=== PATIENT | male | born 1935 | race Caucasian/White ===

== ENCOUNTER 2016-08-20 12:36 | Emergency (ER) | payer OTHER, MEDICAID ==
[2016-08-20 14:09] VITALS: BP 159/74
== END 2016-08-20 14:09 | disposition home or self-care (01) ==
LOC: ED 12:36
DX: L60.0 Ingrowing nail (principal); E11.9 Type 2 diabetes mellitus without complications; I10 Essential (primary) hypertension; Z79.4 Long term (current) use of insulin; Z88.8 Allergy status to other drugs, medicaments and biological substances

== ENCOUNTER 2016-12-02 15:37 | Emergency (ER) | payer OTHER ==
[2016-12-02 15:55] VITALS: BP 148/68
== END 2016-12-02 17:55 | disposition home or self-care (01) ==
LOC: ED 15:37
DX: J06.9 Acute upper respiratory infection, unspecified (principal); I10 Essential (primary) hypertension; E11.9 Type 2 diabetes mellitus without complications; Z91.041 Radiographic dye allergy status

== ENCOUNTER 2017-07-15 17:19 | Inpatient (IN) | payer OTHER ==
[~2017-07-15] VITALS: Ht 167.6 cm; Wt 83.7 kg
[2017-07-15 18:37] LABS: PLATELET COUNT 220 x10^3mcL (130-400); RED CELL DISTRIBUTION WIDTH 12.9 % (11.5-14.5)
[2017-07-15 18:42] LABS: microscopic required? YES; urine erythrocyte TRACE (NEGATIVE)
[2017-07-15 18:46] LABS: CALCIUM 8.3 mg/dL (8.5-10.1); CARBON DIOXIDE 26.2 mmol/L (21-32); CHLORIDE SERUM 102 mmol/L (98-107); CREATININE SERUM 1.5 mg/dL (0.7-1.3); GLUCOSE SERUM 146 mg/dL (74-106); POTASSIUM SERUM 3.9 mmol/L (3.5-5.1); SODIUM SERUM 135 mmol/L (136-145)
[2017-07-15 18:51] LABS: ALKALINE PHOSPHATASE 109 U/L (46-116); ALT/SGPT 25 U/L (16-63); AST/SGOT 21 U/L (15-37); BILIRUBIN TOTAL 0.7 mg/dL (0.20-1.00); TOTAL PROTEIN, SERUM 7.5 g/dL (6.4-8.2)
[2017-07-15 18:53] LABS: ALBUMIN 3.2 g/dL (3.4-5.0)
[2017-07-15 19:15] LABS: BAND NEUTROPHIL 1 % (0-10); METAMYELOCTE 1 % (0-2); MONOCYTE 4 % (0-7); SEGMENTED NEUTROPHILS 86 % (37-75)
[2017-07-15 19:17] LABS: PLATELET MORPHOLOGY FEW LARGE PLATELETS; rbc morphology (normal/abnorm) NORMAL (NORMAL)
[2017-07-15 20:31] LABS: PHOSPHOROUS 2.7 mg/dL (2.5-4.9)
[2017-07-15 20:32] LABS: CHOLESTEROL/HDL RATIO 5.6
[2017-07-15 20:38] LABS: FREE T4 0.58 ng/dL (0.76-1.46); T3 TOTAL 0.83 ng/mL
[2017-07-15 20:42] LABS: FREE THYROXINE INDEX 1.3 ug/dL (1.4-4.5); T4(THYROXINE) 3.7 ug/dL (4.7-13.3)
[2017-07-15 20:54] VITALS: BP 118/48
[2017-07-15] MEDS ORDERED: NOR10 PO (21:50)
[2017-07-15] MEDS ORDERED: PRAVASTATIN SOD10 M1 PO (21:50)
[2017-07-15] MEDS ORDERED: VITAMIN D32000 I2 PO (21:50)
[2017-07-15] MEDS ORDERED: MELOXICAM7.5 M1 PO (21:50)
[2017-07-15] MEDS ORDERED: ATENOLOL50 MG PO (21:50)
[2017-07-15] MEDS ORDERED: CALCIUM500 M1 PO (21:51)
[2017-07-15 22:16] LABS: AMPHETAMINE QUAL UR NONE DETECTED (NEG <=1000)
[2017-07-15 22:40] VITALS: BP 118/48
[2017-07-16 05:22] VITALS: BP 137/59
[2017-07-16 06:24] LABS: BASOPHIL % 0.2 % (0-2); PLATELET COUNT 183 x10^3mcL (130-400); RED CELL DISTRIBUTION WIDTH 13.1 % (11.5-14.5)
[2017-07-16 06:41] LABS: CALCIUM 7.5 mg/dL (8.5-10.1); CARBON DIOXIDE 26.4 mmol/L (21-32); CHLORIDE SERUM 110 mmol/L (98-107); CREATININE SERUM 1.5 mg/dL (0.7-1.3); GLUCOSE SERUM 116 mg/dL (74-106); MAGNESIUM 2.1 mg/dL (1.8-2.4); PHOSPHOROUS 3.1 mg/dL (2.5-4.9); POTASSIUM SERUM 4.3 mmol/L (3.5-5.1); SODIUM SERUM 141 mmol/L (136-145)
[2017-07-16 09:44] VITALS: BP 138/55
[2017-07-16 09:45] VITALS: BP 139/58
[2017-07-16] MEDS ORDERED: TRAMADOL HCL50 MG PO (11:36)
[2017-07-16] MEDS ORDERED: COZAAR100 MG PO (11:41)
[2017-07-16] MEDS ORDERED: GABAPENTIN100 M2 PO (11:42)
[2017-07-16] MEDS ORDERED: GEMFIBROZIL600 MG PO (11:44)
[2017-07-16] MEDS ORDERED: NEILMED SINUS R1 PKT NS (11:46)
[2017-07-16] MEDS ORDERED: LYRICA50 M1 PO (11:46)
[2017-07-16] MEDS ORDERED: [UNRECOGNIZED DRUG - OTHER] (11:47)
[2017-07-16] MEDS ORDERED: VERAMYST27.5 MCG/1 (11:47)
[2017-07-16 12:58] VITALS: BP 125/59
[2017-07-16 17:48] VITALS: BP 143/95
[2017-07-16 21:25] VITALS: BP 146/68
[2017-07-17 05:27] VITALS: BP 160/67
[2017-07-17 06:54] LABS: BASOPHIL % 0.5 % (0-2); PLATELET COUNT 177 x10^3mcL (130-400); RED CELL DISTRIBUTION WIDTH 13.5 % (11.5-14.5)
[2017-07-17 07:10] LABS: CALCIUM 7.8 mg/dL (8.5-10.1); CARBON DIOXIDE 25.2 mmol/L (21-32); CHLORIDE SERUM 108 mmol/L (98-107); CREATININE SERUM 1.4 mg/dL (0.7-1.3); GLUCOSE SERUM 118 mg/dL (74-106); MAGNESIUM 2.1 mg/dL (1.8-2.4); PHOSPHOROUS 3.2 mg/dL (2.5-4.9); POTASSIUM SERUM 4.6 mmol/L (3.5-5.1); SODIUM SERUM 138 mmol/L (136-145)
[2017-07-17 08:56] VITALS: BP 155/65
[2017-07-17 13:54] VITALS: Ht 167.6 cm; Wt 83.7 kg
[2017-07-17 13:55] VITALS: BP 154/64
[2017-07-17 18:45] VITALS: BP 152/69
[2017-07-17 20:38] VITALS: BP 153/68
[2017-07-18 05:57] VITALS: BP 156/69
[2017-07-18 06:45] LABS: CALCIUM 8.4 mg/dL (8.5-10.1); CARBON DIOXIDE 25.8 mmol/L (21-32); CHLORIDE SERUM 108 mmol/L (98-107); CREATININE SERUM 1.5 mg/dL (0.7-1.3); GLUCOSE SERUM 123 mg/dL (74-106); POTASSIUM SERUM 4.7 mmol/L (3.5-5.1); SODIUM SERUM 140 mmol/L (136-145)
[2017-07-18 07:46] LABS: BASOPHIL % 0.4 % (0-2); PLATELET COUNT 189 x10^3mcL (130-400); RED CELL DISTRIBUTION WIDTH 13.1 % (11.5-14.5)
[2017-07-18 08:27] VITALS: BP 154/77
[2017-07-18] MEDS ORDERED: MER500I IV (14:31)
[2017-07-18] MEDS ORDERED: BD LACTINEX1.4 MG PO (14:31)
[2017-07-18 14:56] VITALS: BP 154/77
[2017-07-18] MEDS ORDERED: DEXPF IV (17:05)
[2017-07-18] MEDS ORDERED: HUMULIN R100 U/1 M1 SC (17:05)
[2017-07-18] MEDS ORDERED: BG FS (17:05)
== END 2017-07-18 18:23 | DRG 871 ==
LOC: ED 17:19 → MU 19:53 → DU 19:53 → MU 07-17 12:35
PROVIDERS: Emergency Medicine; Family Medicine
DX: A41.9 Sepsis, unspecified organism (principal); N17.0 Acute kidney failure with tubular necrosis; N39.0 Urinary tract infection, site not specified; E44.1 Mild protein-calorie malnutrition; I10 Essential (primary) hypertension; I25.10 Atherosclerotic heart disease of native coronary artery without angina pectoris; E66.9 Obesity, unspecified; Z68.29 Body mass index [BMI] 29.0-29.9, adult; E78.00 Pure hypercholesterolemia, unspecified; Z95.1 Presence of aortocoronary bypass graft; E11.65 Type 2 diabetes mellitus with hyperglycemia; E03.9 Hypothyroidism, unspecified; E78.2 Mixed hyperlipidemia; E86.0 Dehydration; D64.9 Anemia, unspecified
CPT/HCPCS: 82962; 83880; 84439; 87804; 94150; J0456; J0696; J1885; J1956; J2185; J3490; J7030; J7050; J8597; Q0092

== ENCOUNTER 2018-05-08 09:29 | Observation (INO) | payer OTHER ==
[~2018-05-08] VITALS: Ht 160 cm; Wt 78.5 kg
[~2018-05-08 09:29] MED LIST: ATENOLOL50 MG PO; BD LACTINEX1.4 MG PO; BG FS; CALCIUM500 M1 PO; COZAAR100 MG PO; DEXPF IV; GABAPENTIN100 M2 PO; GEMFIBROZIL600 MG PO; HUMULIN R100 U/1 M1 SC; LYRICA50 M1 PO; MELOXICAM7.5 M1 PO; MER500I IV; NEILMED SINUS R1 PKT NS; NOR10 PO; PRAVASTATIN SOD10 M1 PO; TRAMADOL HCL50 MG PO; VERAMYST27.5 MCG/1; VITAMIN D32000 I2 PO; [UNRECOGNIZED DRUG - OTHER]
[2018-05-08 09:50] VITALS: Ht 160 cm; Wt 78.5 kg
--- NOTE | 2018-05-08 10:05 | NUR ---
PT AWAKE AND ALERT. PT C/O COUGH, RUNNY NOSE, AND C/P. NAD. DENIES SOB. RESP E/U. PT ON FULL CM. PT AWAITING MSE IN POSITION OF COMFORT
--- NOTE | 2018-05-08 11:05 | NUR ---
PT TAKEN TO XRAY VIA WHEELCHAIR
[2018-05-08 11:08] LABS: BASOPHIL % 0.4 % (0-2); PLATELET COUNT 208 x10^3mcL (130-400); RED CELL DISTRIBUTION WIDTH 12.9 % (11.5-14.5)
[2018-05-08 11:10] LABS: CALCIUM 8.5 mg/dL (8.5-10.1); CARBON DIOXIDE 25.4 mmol/L (21-32); CHLORIDE SERUM 104 mmol/L (98-107); CREATININE SERUM 1.5 mg/dL (0.7-1.3); GLUCOSE SERUM 196 mg/dL (74-106); POTASSIUM SERUM 4.2 mmol/L (3.5-5.1); SODIUM SERUM 136 mmol/L (136-145)
--- NOTE | 2018-05-08 11:16 | NUR ---
PT AMBULATORY TO RESTROOM WITH STEADY GAIT
[2018-05-08 11:21] LABS: ALKALINE PHOSPHATASE 95 U/L (46-116); ALT/SGPT 16 U/L (16-63); AMYLASE 66 U/L (25-115); AST/SGOT 16 U/L (15-37); BILIRUBIN TOTAL 0.76 mg/dL (0.20-1.00); CHOLESTEROL 150 mg/dL (<200); HDL CHOLESTEROL 43 mg/dL (40-60); LIPASE 156 IU/L (73-393); TOTAL PROTEIN, SERUM 7.3 g/dL (6.4-8.2)
[2018-05-08 11:22] LABS: T4(THYROXINE) 4.4 ug/dL (4.7-13.3)
[2018-05-08 12:17] LABS: UA SPECIFIC GRAVITY >=1.030 (1.005-1.035); microscopic required? YES; urine erythrocyte TRACE (NEGATIVE)
--- NOTE | 2018-05-08 13:13 | NUR ---
PT PROVIDED WITH SANDWICH AND PUDDING. NAD. RESP E/U. PT ON FULL CM. CALL LIGHT WITHIN REACH
--- NOTE | 2018-05-08 14:15 | NUR ---
PT MEDICATED PER DOCTORS ORDERS
[2018-05-08] MEDS ORDERED: GEMFIBROZIL600 MG PO (14:16)
[2018-05-08] MEDS ORDERED: TIROSINT50 MC1 PO (14:16)
[2018-05-08] MEDS ORDERED: ASPIR 8181 MG PO (14:17)
[2018-05-08] MEDS ORDERED: SIMVASTATIN20 M1 PO (14:17)
[2018-05-08] MEDS ORDERED: ATENOLOL50 MG PO (14:18)
[2018-05-08] MEDS ORDERED: ARNUITY ELLIPT50 MCG IH (14:18)
[2018-05-08] MEDS ORDERED: LOSARTAN POTASS25 M1 PO (14:18)
[2018-05-08] MEDS ORDERED: NOR10 PO (14:19)
--- NOTE | 2018-05-08 15:35 | NUR ---
REPORT GIVEN TO BLAKE IN TELE, SHE REPORTS ROOM IS NOT CLEAN AND TO WAIT TO BRING PT UPSTAIRS
[2018-05-08 15:46] LABS: CHOLESTEROL/HDL RATIO 3.7
[2018-05-08 16:33] VITALS: BP 165/59
--- NOTE | 2018-05-08 16:50 | NUR ---
AT 1607- PATIENT RECEIVED FROM ED VIA [facility] ACCOMPANIED BY RN, PATIENT AMBULATED FROM [place] TO BED WITH STEADY GAIT. PATIENT ASSISTED COMFORTABLY IN BED, HOOKED TO SPICE GRINDER #39,PATIENT ACQUIANTED TO BEDSIDE EQUIPMENTS AND UNIT POLICIES. SAFETY PRECAUTIONS INITIATED. PATIENT STATED THAT THE REASON WHY HE SEEK MEDICAL INTERVENTION IS D/T WORSENING CHEST PAINS MORE LIKE PRESSURE AND COUGH AND RUNNY NOSE. HAD THIS CHEST PRESSURE FOR A MONTH NOW, PATIENT WITH HX;HEART BYPASS 2 YEARS AGO. PATIENT STATED PAIN IS NON RADIATING NO SOB NO DIAPHORESIS. PATIENT STATED CHEST PRESSURE IS AT 2/10 NOW, DULL AND COMFORTABLE. WILL ENDORSE CONTINUITY OF CARE TO ASSIGNED NURSE BROWN-EWELINA.
--- NOTE | 2018-05-08 18:28 | NUR ---
CONDITION SATBLE. DENIED CHEST PAIN. VOID X1 VIA BRP. ENDROSED CARE TO NOC NURSE.
[2018-05-08 18:33] VITALS: BP 166/95
--- NOTE | 2018-05-08 20:13 | NUR ---
MEDICAL LAB TECH INSTRUCTOR SERVICES USED #[id number] PAU FOR BELGI[place] INTERPRETATION. PATIENT HAD A QUESTION IN REGARDS TO HIS IV AND IF HE REQUIRES IV FLUIDS OR ANTIBIOTICS. EDUCATED PATIENT. NO FURTHER QUESTIONS AT THIS TIME.
[2018-05-08 20:47] VITALS: BP 159/67
--- NOTE | 2018-05-08 21:25 | NUR ---
SCHEDULED MEDICATIONS ADMINISTERED. NO SWALLOWING DIFFICULTY NOTED. TELE 39 SR WITH DEPRESSED T WAVES NOTED ON PRECISION AGRONOMIST. PATIENT COMPLAINING OF DRY NON-PRODUCTIVE COUGH AT THIS TIME REQUESTING FOR COUGH MEDICATION. AWAITING CALL BACK FROM DR. LUO.
--- NOTE | 2018-05-08 21:38 | NUR ---
NEW ORDERS RECEIVED FOR COUGH MEDICATIONS PER PATIENT'S REQUEST.
--- NOTE | 2018-05-09 00:47 | NUR ---
PATIENT QUIETLY SLEEPING AT THIS TIME. NO S/S OF DISTRESS NOTED, BREATHING EVEN AND UNLABORED. CURRENTLY ON ROOM AIR. REMAINED ON CONTACT PRECAUTIONS FOR HX OF MDRO OF THE URINE AND BLOOD. CALL LIGHT WITHIN REACH.
--- NOTE | 2018-05-09 01:50 | NUR ---
RECEIVED REPORT FROM EWELINA EASTMAN. ALL QUESTIONS AND CONCERNS ADDRESSED.
--- NOTE | 2018-05-09 03:45 | NUR ---
PT RESTING AT THIS TIME IN HOSPITAL BED IN LOW GRIFFIN. NO SIGNS OR COMPLAINTS OF ACUTE DISTRESS.
[2018-05-09 05:51] VITALS: BP 147/64
[2018-05-09 06:27] LABS: BASOPHIL % 0.5 % (0-2); PLATELET COUNT 204 x10^3mcL (130-400); RED CELL DISTRIBUTION WIDTH 12.8 % (11.5-14.5)
[2018-05-09 06:42] LABS: CALCIUM 8.6 mg/dL (8.5-10.1); CARBON DIOXIDE 27.8 mmol/L (21-32); CHLORIDE SERUM 103 mmol/L (98-107); CREATININE SERUM 1.4 mg/dL (0.7-1.3); GLUCOSE SERUM 102 mg/dL (74-106); POTASSIUM SERUM 4.9 mmol/L (3.5-5.1); SODIUM SERUM 136 mmol/L (136-145)
--- NOTE | 2018-05-09 07:30 | NUR ---
PT IS AAOX4. RESP EVEN AND UNLABORED. TELE [address] READING NSR. RESP EVEN AND UNLABORED. PT NOTED WITH NON PRODUCTIVE CHRONIC COUGH. FLUIDS ENCOURAGED. ROBITUSSIN WILL BE GIVEN. ABDOMEN SOFT, NONTENDER, NONDISTENDED. BOWEL SOUNDS ACTIVE X4. SKIN CDI, NO EDEMA. PERIPHERAL PULSES PALPABLE. IV CATH TO LAC N/S LOCKED, PATENT, SITE WNL. PT DENIES PAIN AT THIS TIME. CALL LIGHT WITHIN REACH. BED IN LOW POSITION. FALL PROTOCOL IN PLACE.
[2018-05-09 09:00] VITALS: BP 152/63
[2018-05-09] MEDS ORDERED: AZITHROMYCIN250 M1 PO (09:28)
[2018-05-09 09:50] VITALS: BP 147/64
--- NOTE | 2018-05-09 10:39 | NUR ---
FLONASE GIVEN, LATE DUE TO MED NOT PREPPED BY PHARMACY UNTIL AFTER 10AM. INSTRUCTED PT ON PROPER USE AND INHALATION OF MED. PT GAVE RETURN DEMONSTRATION. CALL LIGHT WITHIN REACH.
--- NOTE | 2018-05-09 11:45 | NUR ---
PT IS SITTING UP IN CHAIR. RESP EVEN AND UNLABORED. BS 184, 3 UNITS INSULIN SQ GIVEN. DENIES PAIN OR DISCOMFORT AT THIS TIME. CALL LIGHT WITHIN REACH.
--- NOTE | 2018-05-09 13:15 | NUR ---
PT DISCHARGED TO HOME IN NO DISTRESS. DISCHARGE INSTRUCTIONS REVIEWED, ALL FORMS SIGNED. RX GIVEN TO PT. TELE 59 REMOVED AND RETURNED TO [facility]MER CHILD CAREGIVER. IV CATH TO LAC REMOVED INTACT. SITE WITHIN NORMAL LIMITS COVERED WITH GAUZE AND BANDAID. VS: 98.OF, 60, 18, 147/64, 98% ON R/A. PT DENIES PAIN OR DISCOMFORT UPON D/C. ALL PERSONAL BELONINGS TAKEN HOME.
== END 2018-05-09 13:10 | disposition home or self-care (01) | DRG 203 ==
LOC: ED 09:29 → DU 14:03
PROVIDERS: Emergency Medicine; ADMIT Internal Medicine Pulmonary Disease
DX: J20.9 Acute bronchitis, unspecified (principal); R07.89 Other chest pain; I25.10 Atherosclerotic heart disease of native coronary artery without angina pectoris; I11.9 Hypertensive heart disease without heart failure; E03.9 Hypothyroidism, unspecified; E78.5 Hyperlipidemia, unspecified; Z95.5 Presence of coronary angioplasty implant and graft
CPT/HCPCS: 36600; 82962; 83880; G0378; J0456; J1644; J7050

== ENCOUNTER 2018-11-25 13:35 | Emergency (ER) | payer OTHER, MEDICAID ==
[~2018-11-25] VITALS: Ht 160 cm; Wt 717.1 kg
[~2018-11-25 13:35] MED LIST changes: +ARNUITY ELLIPT50 MCG IH; +ASPIR 8181 MG PO; +AZITHROMYCIN250 M1 PO; +LOSARTAN POTASS25 M1 PO; +SIMVASTATIN20 M1 PO; +TIROSINT50 MC1 PO
[2018-11-25 13:55] VITALS: Ht 160 cm; Wt 717.1 kg
[2018-11-25 15:04] LABS: BASOPHIL % 0.5 % (0-2); PLATELET COUNT 201 x10^3mcL (130-400); RED CELL DISTRIBUTION WIDTH 12.9 % (11.5-14.5)
[2018-11-25 15:09] LABS: UA SPECIFIC GRAVITY >=1.030 (1.005-1.035); microscopic required? YES; urine erythrocyte TRACE (NEGATIVE)
[2018-11-25 15:12] LABS: CARBON DIOXIDE 26.7 mmol/L (21-32); CHLORIDE SERUM 104 mmol/L (98-107); CREATININE SERUM 1.7 mg/dL (0.7-1.3); GLUCOSE SERUM 223 mg/dL (74-106); POTASSIUM SERUM 4.5 mmol/L (3.5-5.1); SODIUM SERUM 137 mmol/L (136-145)
[2018-11-25 15:17] LABS: ALBUMIN 3.1 g/dL (3.4-5.0); ALKALINE PHOSPHATASE 121 U/L (46-116); ALT/SGPT 16 U/L (16-63); AST/SGOT 15 U/L (15-37); BILIRUBIN TOTAL 0.4 mg/dL (0.20-1.00); TOTAL PROTEIN, SERUM 6.8 g/dL (6.4-8.2)
[2018-11-25 22:34] VITALS: BP 158/62
== END 2018-11-25 22:36 | disposition short-term general hospital (02) ==
LOC: ED 13:35
PROVIDERS: Emergency Medicine
DX: G45.9 Transient cerebral ischemic attack, unspecified (principal); I25.10 Atherosclerotic heart disease of native coronary artery without angina pectoris; I10 Essential (primary) hypertension; E11.9 Type 2 diabetes mellitus without complications; E78.00 Pure hypercholesterolemia, unspecified; E78.5 Hyperlipidemia, unspecified; Z88.8 Allergy status to other drugs, medicaments and biological substances; Z98.890 Other specified postprocedural states
CPT/HCPCS: 36415; Q0092